=== PATIENT | male | born 1935 | race Hispanic/Latino ===

== ENCOUNTER 2018-07-05 05:22 | Day surgery (SDC) | payer OTHER ==
[2018-07-05] VITALS (8 sets, daily range): BP systolic 97–147; BP diastolic 42–76
[~2018-07-05] VITALS: Ht 175.3 cm; Wt 63.5 kg
[~2018-07-05 05:22] MED LIST: AEC81 PO; CARV25TA PO; ENAL2.5T PO; FURO20TA4 PO; POTASSIUM PO; SIMV10TA6 PO; SPIR25TA6 PO
[2018-07-05] MEDS ORDERED: PROPOFOL 1000 MG/100 ML 100 ML IV ONE (06:28)
[2018-07-05] MEDS ORDERED: LIDOCAINE HCL-MPF 2% 5ML VIAL ONE (06:28)
[2018-07-05] MEDS ORDERED: SODIUM CHLORIDE 0.9% 1000ML 1,000 ML IV ONE (06:28)
[2018-07-05] MEDS ORDERED: GLYCOPYRROLATE 0.2 MG/ML 5 ML VIAL ONE (06:29)
[2018-07-05] MEDS ORDERED: EPHEDRINE SULFATE 50 MG/ML AMPULE ONE (06:42)
== END 2018-07-05 07:45 | disposition home or self-care (01) ==
LOC: ENDO 05:22 → DAH 05:22 → ENDO 07:45
PROVIDERS: ATTEND Internal Medicine Gastroenterology
DX: K57.30 Diverticulosis of large intestine without perforation or abscess without bleeding (principal); K29.50 Unspecified chronic gastritis without bleeding; B96.81 Helicobacter pylori [H. pylori] as the cause of diseases classified elsewhere; K44.9 Diaphragmatic hernia without obstruction or gangrene; R19.7 Diarrhea, unspecified; R10.84 Generalized abdominal pain; E78.5 Hyperlipidemia, unspecified; I11.0 Hypertensive heart disease with heart failure; I50.9 Heart failure, unspecified; M19.90 Unspecified osteoarthritis, unspecified site; Z79.899 Other long term (current) drug therapy; Z98.890 Other specified postprocedural states; Z95.0 Presence of cardiac pacemaker; E78.2 Mixed hyperlipidemia; Z79.01 Long term (current) use of anticoagulants; Z79.84 Long term (current) use of oral hypoglycemic drugs
CPT/HCPCS: 43239; 45380; 88305; 93005; A4606; J2704; J3490 ×2; J7030

== ENCOUNTER 2020-04-12 13:52 | Observation (INO) | payer OTHER ==
[~2020-04-12] VITALS: Ht 175.3 cm; Wt 68.7 kg
[~2020-04-12 13:52] MED LIST changes: +DEXA6TAB7 PO; +DOXY100C2 PO; -ENAL2.5T PO; +ENAL2.5T16 PO; -SIMV10TA6 PO; +SIMV10TA97 PO
[2020-04-12] MEDS ORDERED: SODIUM CHLORIDE 0.9% 50 ML IV ONE (14:49)
[2020-04-12] MEDS ORDERED: CEFTRIAXONE SODIUM 1 GM ONE (14:49)
[2020-04-12] MEDS ORDERED: PANTOPRAZOLE 40 MG/VIAL ONE (15:02)
[2020-04-12 15:03] LABS: INR 1.4 (0.85-1.15); PROTHROMBIN TIME 14.9 SEC (9.6-11.6)
[2020-04-12 15:11] LABS: PARTIAL THROMBOPLASTIN TIME 96.5 SEC (26.3-35.5)
[2020-04-12 16:06] LABS: POTASSIUM 4.3 mmol/L (3.5-5.1)
[2020-04-12 16:15] LABS: ALBUMIN 2.1 g/dL (3.5-5.0); BILIRUBIN,TOTAL 1.1 mg/dL (0.2-1.0); TOTAL PROTEIN, SERUM 5.3 g/dL (6.0-8.3); TROPONIN I 0.05 ng/mL (0.00-0.06)
[2020-04-12 16:17] LABS: APPEARANCE,URINE Clear (CLEAR); BILIRUBIN,URINE Negative (NEGATIVE); COLOR,URINE Dark Yellow (YELLOW); GLUCOSE, URINE (UA) Negative (NEGATIVE); KETONES,URINE Trace mg/dL (NEGATIVE); LEUKOCYTE ESTERASE ,URINE Negative (NEGATIVE); NITRATE,URINE Negative (NEGATIVE); OCCULT BLOOD,URINE Negative (NEGATIVE); PH,URINE 6.5 (5.0-8.0); PROTEIN,URINE POS 1+ mg/dL (NEGATIVE)
[2020-04-12 16:30] LABS: BASOPHILS % (AUTO) 0.2 % (0.0-5.0); HEMATOCRIT 36.2 % (42-54); LYMPHOCYTES % (AUTO) 6.1 % (21.0-51.0); MEAN CORPUSCULAR HEMOGLOBIN 27.8 pg (27.0-33.0); MEAN CORPUSCULAR HGB CONC 32.3 g/dL (32.0-36.0); MONOCYTES % (AUTO) 4.8 % (3.0-13.0); PLATELET COUNT (AUTO) 161 K/uL (130-400); RED BLOOD CELL COUNT(AUTO) 4.21 MIL/uL (4.50-6.20); RED CELL DISTRIBUTION WIDTH 15.1 % (11.0-15.5); WHITE BLOOD COUNT (AUTO) 5.6 K/uL (4.8-10.8)
[2020-04-12 16:40] LABS: BACTERIA,URINE Few /HPF (None Seen); MUCUS,URINE Moderate LPF (None Seen); RBC,URINE 0-1 /HPF (0-1); SQUAMOUS EPITHELIAL CELL,UR 0-2 /HPF (0-2); WBC,URINE 0-1 /HPF (0-1)
[2020-04-12] MEDS ORDERED: NITROGLYCERIN 0.4 MG SL TAB SL PRN (17:45)
[2020-04-12] MEDS ORDERED: MORPHINE SULFATE 2 MG/ML 1ML SYG IV PRN (17:45)
[2020-04-12] MEDS ORDERED: ACETAMINOPHEN 325 MG TAB PO PRN (17:45)
[2020-04-12] MEDS ORDERED: MAG HYDROX/AL HYDROX/SIMETH ES 30 ML SUSP UDCUP PO PRN (17:45)
[2020-04-12] MEDS ORDERED: ONDANSETRON HCL 4 MG/2 ML VIAL IV PRN (17:45)
[2020-04-12] MEDS ORDERED: LACTULOSE 20 GM/30 ML UDCUP PO PRN (17:45)
[2020-04-12] MEDS ORDERED: SODIUM CHLORIDE 0.9% 1000ML 1,000 ML IV SCH (17:45)
[2020-04-12 18:16] LABS: RAPID GROUP A STREP NEGATIVE (NEGATIVE)
[2020-04-12] MEDS ORDERED: ACETAMINOPHEN 325 MG TAB ONE (22:52)
[2020-04-12] MEDS ORDERED: FAMOTIDINE 20MG TAB 20 MG TAB ONE (23:25)
[2020-04-13 05:35] LABS: BASOPHILS % (AUTO) 0.1 % (0.0-5.0); EOSINOPHILS % (AUTO) 0.5 % (0.0-8.0); MEAN CORPUSCULAR HEMOGLOBIN 28.3 pg (27.0-33.0); MEAN CORPUSCULAR HGB CONC 32.6 g/dL (32.0-36.0); MEAN CORPUSCULAR VOLUME 86.9 fL (79-99); MONOCYTES % (AUTO) 5.6 % (3.0-13.0); NEUTROPHILS % (AUTO) 87.1 % (40.0-77.0); PLATELET COUNT (AUTO) 162 K/uL (130-400); RED BLOOD CELL COUNT(AUTO) 4.49 MIL/uL (4.50-6.20); RED CELL DISTRIBUTION WIDTH 15.2 % (11.0-15.5); WHITE BLOOD COUNT (AUTO) 7.6 K/uL (4.8-10.8)
[2020-04-13 05:52] LABS: POTASSIUM 4.5 mmol/L (3.5-5.1)
[2020-04-13] MEDS ORDERED: SODIUM CHLORIDE 0.9% 100 ML IV ONE (09:22)
[2020-04-13] MEDS ORDERED: CEFTRIAXONE SODIUM 1 GM ONE (09:22)
[2020-04-13] MEDS ORDERED: FAMOTIDINE 20MG TAB 20 MG TAB ONE (09:22)
[2020-04-13 13:26] LABS: ABG BASE EXCESS -2.1 mmol/L (-2.0-3.0); ABG HCO3 19.7 mmol/L (21.0-28.0); ABG OXYGEN SATURATION 96.9 % (95.0-99.0); ABG PCO2 27 mmHg (35-48)
--- NOTE | 2020-04-13 13:58 | NUR ---
ARRIVAL TO FLOOR Report received from RICHAR Grimes at 1320 Pt arrival to floor at 1350. Pt aaox4, airway patent breathing even and unlabored on room air. Pt connected to tele box at this time. VS stable. Will begin admission process. Pt made aware of plan of care
[2020-04-13 14:00] VITALS: BP 110/70
[2020-04-13] MEDS: ENALAPRIL MALEATE 5 MG TAB PO SCH (14:00)
[2020-04-13] MEDS: FUROSEMIDE 20 MG TABLET PO SCH (14:00)
[2020-04-13] MEDS: POTASSIUM CHLORIDE 20 MEQ ERTAB PO SCH (14:00)
[2020-04-13] MEDS: ASPIRIN 81 MG EC TAB PO SCH (14:00)
[2020-04-13] MEDS: FAMOTIDINE 20MG TAB 20 MG TAB PO SCH ×2 (14:00→20:51)
[2020-04-13] MEDS: CARVEDILOL 25 MG TABLET PO SCH ×2 (14:00→20:51)
[2020-04-13] MEDS: CEFTRIAXONE SODIUM 1 GM IV SCH ×3 (14:00→18:19)
[2020-04-13 16:18] VITALS: BP 113/71
[2020-04-13 19:47] VITALS: BP 105/56
[2020-04-13 23:50] VITALS: BP 90/52
[2020-04-14 03:37] VITALS: BP 114/86
[2020-04-14 04:42] LABS: BASOPHILS % (AUTO) 0.3 % (0.0-5.0); EOSINOPHILS % (AUTO) 0.4 % (0.0-8.0); HEMATOCRIT 41.1 % (42-54); LYMPHOCYTES % (AUTO) 7.5 % (21.0-51.0); MEAN CORPUSCULAR HEMOGLOBIN 28.7 pg (27.0-33.0); MEAN CORPUSCULAR HGB CONC 33.1 g/dL (32.0-36.0); MEAN CORPUSCULAR VOLUME 86.7 fL (79-99); MONOCYTES % (AUTO) 8.1 % (3.0-13.0); NEUTROPHILS % (AUTO) 83.4 % (40.0-77.0); PLATELET COUNT (AUTO) 161 K/uL (130-400); RED BLOOD CELL COUNT(AUTO) 4.74 MIL/uL (4.50-6.20); RED CELL DISTRIBUTION WIDTH 15.2 % (11.0-15.5); WHITE BLOOD COUNT (AUTO) 6.9 K/uL (4.8-10.8)
[2020-04-14 04:58] LABS: ALBUMIN 2.4 g/dL (3.5-5.0); BILIRUBIN,DIRECT 0.4 mg/dL (0.0-0.3); BILIRUBIN,TOTAL 0.8 mg/dL (0.2-1.0); MAGNESIUM 2.7 mg/dL (1.80-2.40); PHOSPHORUS 2.6 mg/dL (2.5-4.9); POTASSIUM 4.4 mmol/L (3.5-5.1); TOTAL PROTEIN, SERUM 6.7 g/dL (6.0-8.3)
[2020-04-14 07:50] VITALS: BP 106/64
[2020-04-14] MEDS: ASPIRIN 81 MG EC TAB PO SCH (08:37)
[2020-04-14] MEDS: CARVEDILOL 25 MG TABLET PO SCH (08:38)
[2020-04-14] MEDS: POTASSIUM CHLORIDE 20 MEQ ERTAB PO SCH (08:39)
[2020-04-14] MEDS: FAMOTIDINE 20MG TAB 20 MG TAB PO SCH (08:39)
[2020-04-14] MEDS: FUROSEMIDE 20 MG TABLET PO SCH (08:40)
[2020-04-14] MEDS: ENALAPRIL MALEATE 5 MG TAB PO SCH (08:43)
[2020-04-14] MEDS ORDERED: SPIRONOLACTONE 25 MG TAB PO SCH (09:00)
[2020-04-14 12:00] VITALS: BP 113/69
[2020-04-14 16:00] VITALS: BP 106/68
--- NOTE | 2020-04-14 17:09 | NUR ---
DISCHARGED Pt discharged per provider order. Pt transported to private vehicle via wheelchair in NAD. Spoke with daughter (primary caregiver), all questions answered and concerns addressed.
== END 2020-04-14 17:12 | disposition home or self-care (01) ==
LOC: EDH 13:52 → UNDOADMOB 17:34 → EDHIP 17:34 → 2AH 04-13 14:00 → EDHIP 04-13 14:00
PROVIDERS: ADMIT Internal Medicine Critical Care Medicine; ATTEND Internal Medicine Critical Care Medicine
DX: U07.1 COVID-19 (principal); J12.89 Other viral pneumonia; I11.0 Hypertensive heart disease with heart failure; I50.42 Chronic combined systolic (congestive) and diastolic (congestive) heart failure; R74.01 Elevation of levels of liver transaminase levels; I25.10 Atherosclerotic heart disease of native coronary artery without angina pectoris; I25.5 Ischemic cardiomyopathy; I48.91 Unspecified atrial fibrillation; E87.1 Hypo-osmolality and hyponatremia; H66.92 Otitis media, unspecified, left ear; E78.00 Pure hypercholesterolemia, unspecified; Z95.810 Presence of automatic (implantable) cardiac defibrillator; Z90.49 Acquired absence of other specified parts of digestive tract; Z79.82 Long term (current) use of aspirin; Z79.899 Other long term (current) drug therapy
CPT/HCPCS: 36415 ×3; 36600; 71045; 80048; 80053 ×2; 81001; 82150; 82270; 82550; 82803; 82948; 83605; 83690; 83735 ×2; 83874; 84100; 84145; 84484; 85025 ×3; 85610; 85730; 86850; 86900; 86901; 86922; 87040; 87088; 87426; 87804 ×2; 87880; 93005; 96374; 99285; C9113; G0378 ×8; J0696 ×3; U0003; 80076

== ENCOUNTER → 2022-01-19 | Outpatient (CLI) | payer OTHER ==
[~2022-01-19] MED LIST changes: -DEXA6TAB7 PO; -DOXY100C2 PO; -POTASSIUM PO; -SIMV10TA97 PO
[2022-01-19 12:31] LABS: MAGNESIUM 2.1 mg/dL (1.80-2.40); POTASSIUM 4.6 mmol/L (3.5-5.1)
== END | disposition home or self-care (01) ==
LOC: LAB 08:30
PROVIDERS: ATTEND Internal Medicine Cardiovascular Disease
DX: I50.22 Chronic systolic (congestive) heart failure (principal); I10 Essential (primary) hypertension
CPT/HCPCS: 36415; 80048; 83735

== ENCOUNTER → 2023-11-14 | Outpatient (CLI) | payer OTHER ==
[~2023-11-14] MED LIST changes: -ENAL2.5T16 PO; +ENAL2.5T71 PO
[2023-11-14 16:43] LABS: POTASSIUM 4.6 mmol/L (3.5-5.1)
== END | disposition home or self-care (01) ==
LOC: LAB 14:41
PROVIDERS: ATTEND Internal Medicine Cardiovascular Disease
DX: I42.0 Dilated cardiomyopathy (principal)
CPT/HCPCS: 36415; 80048; 83880

== ENCOUNTER → 2023-12-06 | Outpatient (CLI) | payer OTHER ==
[2023-12-06 12:35] LABS: POTASSIUM 4.9 mmol/L (3.5-5.1)
== END | disposition home or self-care (01) ==
LOC: LAB 11:15
PROVIDERS: ATTEND Internal Medicine Cardiovascular Disease
DX: I50.22 Chronic systolic (congestive) heart failure (principal)
CPT/HCPCS: 36415; 80048; 83880

== ENCOUNTER → 2024-03-12 | Outpatient (CLI) | payer OTHER ==
[2024-03-12 16:25] LABS: CREATININE 1.2 mg/dL (0.5-1.3); POTASSIUM 4.3 mmol/L (3.5-5.1)
== END | disposition home or self-care (01) ==
LOC: LAB 13:24
PROVIDERS: ATTEND Internal Medicine Cardiovascular Disease
DX: I50.22 Chronic systolic (congestive) heart failure (principal)
CPT/HCPCS: 36415; 80048

== ENCOUNTER → 2024-03-21 | Outpatient (CLI) | payer OTHER ==
[2024-03-21 12:21] LABS: CREATININE 1.1 mg/dL (0.5-1.3); POTASSIUM 4.9 mmol/L (3.5-5.1)
== END | disposition home or self-care (01) ==
LOC: LAB 11:04
PROVIDERS: ATTEND Internal Medicine Cardiovascular Disease
DX: I10 Essential (primary) hypertension (principal)
CPT/HCPCS: 36415; 80048

== ENCOUNTER → 2024-07-12 | Outpatient (CLI) | payer OTHER ==
[2024-07-12 12:30] LABS: BASOPHILS # (AUTO) 0.03 K/uL (0.00-0.20); BASOPHILS % (AUTO) 0.3 % (0.0-5.0); EOSINOPHILS # (AUTO) 0.15 K/uL (0.00-0.70); EOSINOPHILS % (AUTO) 1.7 % (0.0-8.0); HEMATOCRIT 38.5 % (42-54); IMMATURE GRANULOCYTE ABSOLUTE 0.03 K/uL (0-1); LYMPHOCYTES # (AUTO) 1.6 K/uL (1.0-4.8); LYMPHOCYTES % (AUTO) 17.9 % (21.0-51.0); MEAN CORPUSCULAR HEMOGLOBIN 28.5 pg (27.0-33.0); MEAN CORPUSCULAR HGB CONC 31.9 g/dL (32.0-36.0); MEAN CORPUSCULAR VOLUME 89.3 fL (79-99); MONOCYTES # (AUTO) 0.6 K/uL (0.1-1.0); MONOCYTES % (AUTO) 6.4 % (3.0-13.0); NEUTROPHILS # (AUTO) 6.3 K/uL (1.8-7.7); NEUTROPHILS % (AUTO) 73.4 % (40.0-77.0); PLATELET COUNT (AUTO) 183 K/uL (130-400); RED BLOOD CELL COUNT(AUTO) 4.31 MIL/uL (4.50-6.20); WHITE BLOOD COUNT (AUTO) 8.7 K/uL (4.8-10.8)
[2024-07-12 12:43] LABS: % IRON SATURATION 15.6 % (30-44)
== END | disposition home or self-care (01) ==
LOC: LAB 11:17
PROVIDERS: ATTEND Internal Medicine Cardiovascular Disease
DX: E61.1 Iron deficiency (principal); D64.9 Anemia, unspecified
CPT/HCPCS: 36415; 82728; 83540; 83550; 85025

== ENCOUNTER → 2024-10-08 | Outpatient (CLI) | payer OTHER ==
[2024-10-08 16:16] LABS: BASOPHILS # (AUTO) 0.03 K/uL (0.00-0.20); BASOPHILS % (AUTO) 0.4 % (0.0-5.0); EOSINOPHILS # (AUTO) 0.24 K/uL (0.00-0.70); EOSINOPHILS % (AUTO) 3.4 % (0.0-8.0); IMMATURE GRANULOCYTE ABSOLUTE 0.03 K/uL (0-1); LYMPHOCYTES # (AUTO) 1.2 K/uL (1.0-4.8); LYMPHOCYTES % (AUTO) 17.3 % (21.0-51.0); MEAN CORPUSCULAR HEMOGLOBIN 28.2 pg (27.0-33.0); MEAN CORPUSCULAR HGB CONC 31.1 g/dL (32.0-36.0); MEAN CORPUSCULAR VOLUME 90.7 fL (79-99); MONOCYTES # (AUTO) 0.5 K/uL (0.1-1.0); MONOCYTES % (AUTO) 6.9 % (3.0-13.0); NEUTROPHILS # (AUTO) 5.1 K/uL (1.8-7.7); NEUTROPHILS % (AUTO) 71.6 % (40.0-77.0); PLATELET COUNT (AUTO) 168 K/uL (130-400); RED BLOOD CELL COUNT(AUTO) 4.08 MIL/uL (4.50-6.20); RED CELL DISTRIBUTION WIDTH 15.2 % (11.0-15.5); WHITE BLOOD COUNT (AUTO) 7.1 K/uL (4.8-10.8)
[2024-10-08 16:31] LABS: % IRON SATURATION 14.1 % (30-44)
== END | disposition home or self-care (01) ==
LOC: LAB 11:40
PROVIDERS: ATTEND Internal Medicine Cardiovascular Disease
DX: E61.1 Iron deficiency (principal); D64.9 Anemia, unspecified
CPT/HCPCS: 36415; 82728; 83540; 83550; 85025

== ENCOUNTER 2025-01-25 11:05 | Observation (INO) | payer OTHER ==
[~2025-01-25] VITALS: Ht 177.8 cm; Wt 64.4 kg
[~2025-01-25 11:05] MED LIST changes: +CARB1DRO36 OP; +CYCL5TAB3 PO; +DOXA8TAB81 PO; +KETO-108 OP; +PROP10DR4 OP; +SIMV10TA97 PO
--- NOTE | 2025-01-25 11:18 | ERN ---
ED Note History of Present Illness Stated Complaint: WEAKNESS Chief Complaint: Weakness Time Seen by MD: 11:06 Dictation: PATIENT IS AN 89-YEAR-OLD MALE COMING IN VIA EMS WITH COMPLAINTS OF AN ONSET OF LIGHTHEADEDNESS WHEN HE FELT LIKE HIS FACE WAS GOING TO BUST 1 HOUR PRIOR TO ARRIVAL. STATES HE WAS JUST SITTING AND WHEN HE FELT THE SENSATION. STATES IT ONLY LASTED VERY BRIEFLY, DID NOT LOSE HIS SPEECH OR MOVEMENT OF ALL EXTREMITIES. STATES CURRENTLY HE DOES NOT HAVE A HEADACHE NO CHEST PAIN NO BACK PAIN NO VERTIGO. HE DOES HAVE A HISTORY OF CAD HYPERTENSION PACEMAKER AND CONGESTIVE HEART FAILURE. NIH IS 0 ON APPROACH Allergies: Coded Allergies: No Known Drug Allergies (Unverified Allergy, Unknown, 01/17/15) Home Meds Reported Medications Propylene Glycol (Systane Balance) 0.6 % Drops, 1 DROP OP QID, #10 ML 0 Refills 11/07/24 Carboxymethylcell/Glycerin/Pf (Refresh Relieva Pf 0.5-1% Drop) 0.5 %-1 % Droperette, 1 EACH OP TID, DROP 11/07/24 Ketorolac Tromethamine (Ketorolac Tromethamine) 0.5 % Drops, 1 DROP OP QID for itching, #5 ML 0 Refills 11/07/24 Cyclobenzaprine HCl (Cyclobenzaprine HCl) 5 Mg Tablet, 1 TAB PO TIDP PRN for muscle spasms for 10 Days, #30 TAB 0 Refills 11/07/24 Simvastatin (Simvastatin) 10 Mg Tablet, 1 TAB PO DAILY 11/07/24 Doxazosin Mesylate (Doxazosin Mesylate) 8 Mg Tablet, 1 TAB PO DAILY for 30 Days, #30 TAB 0 Refills 11/07/24 Enalapril Maleate (Enalapril Maleate) 2.5 Mg Tablet, 2.5 MG PO DAILY, TAB 09/20/16 Furosemide (Furosemide) 20 Mg Tablet, 20 MG PO DAILY, TAB 09/20/16 Aspirin (ASPIRIN 81 MG ECTAB) 81 Mg Ectab, 81 MG PO DAILY, TAB.EC 01/17/15 Spironolactone (Spironolactone) 25 Mg Tablet, 25 MG PO MON,WED,FRI, TAB 01/17/15 Carvedilol (Carvedilol) 25 Mg Tablet, 25 MG PO BID, TAB 01/17/15 Past Medical History Past Medical History: High Cholesterol, Hypertension Surgical History: Cholecystectomy, Pacer/AICD RN Note Reviewed/Agreed w/PFSH: Yes Review of System Dictation CONSTITUTIONAL: NEGATIVE EXCEPT FOR HPI LIGHTHEADEDNESS/NEAR-SYNCOPE HEAD/FACE: NEGATIVE EXCEPT FOR HPI EENT: NEGATIVE EXCEPT FOR HPI RESPIRATORY: NEGATIVE EXCEPT FOR HPI GASTROINTESTINAL/ABDOMINAL: NEGATIVE EXCEPT FOR HPI GENITOURINARY: NEGATIVE EXCEPT FOR HPI MUSCULOSKELETAL: NEGATIVE EXCEPT FOR HPI INTEGUMENTARY: NEGATIVE EXCEPT FOR HPI NEUROLOGICAL/PSYCH: NEGATIVE EXCEPT FOR HPI HEMATOLOGIC/LYMPHATIC: NEGATIVE EXCEPT FOR HPI ALL SYSTEMS NEGATIVE, EXCEPT NOTED ABOVE. 13 POINT REVIEW OF SYSTEMS ASSESSED AND ALL NEGATIVE EXCEPT FOR ABOVE. Initial Vital Sign VS Vital Signs Date Time Temp Pulse Resp B/P (MAP) Pulse Ox O2 Delivery O2 Flow Rate FiO2 01/25/25 11:10 72 16 108/80 97 Room Air 0 01/25/25 11:33 97.9 21 Physical Exam Dictation VITAL SIGNS REVIEWED GENERAL APPEARANCE: ALERT, ORIENTED X 3, NO ACUTE DISTRESS, WELL DEVELOPED, NOURISHED. 0/10 HEAD AND FACE: NON-TRAUMATIC. EYES: PERRL, PINK CONJUNCTIVAS, EYELID NO TRAUMA, ANTERIOR CHAMBER WITH ARCUS SENILIS. EARS: PINNAS INTACT AND NO SIGNS OF TRAUMA OR ERYTHEMA EAR CANALS CLEAR AND NO DISCHARGE TM NO ERYTHEMA NOSE: NO DISCHARGE, NO BLEEDING. OROPHARYNX: MOUTH NORMAL, TONGUE PINK, PHARYNX CLEAR,NO ERYTHEMA, TONSILS NO EXUDATES, NO ABSCESSES NOTED, MUCOUS MEMBRANE MOIST NECK: SUPPLE, NON-TENDER, NO THYROMEGALY, NO MASSES, NO JVD, NO BRUITS BREAST:DEFERRED CHEST:NO TENDERNESS, NO CREPITUS, NO PARADOXICAL MOVEMENT, NO RETRACTIONS LUNGS:CLEAR, WELL-VENTILATED, SYMMETRIC, NO RALES, NO WHEEZING, NO RHONCHI, NO STRIDOR, GOOD BREATH SOUNDS BILATERALLY HEART: REGULAR RATE, REGULAR RHYTHM, NO MURMUR, NO GALLOPS VASCULAR: TRACE PERIPHERAL EDEMA, ABDOMEN: SOFT, POSITIVE BOWEL SOUNDS, NONDISTENDED, NO GUARDING, NONTENDER, NO REBOUND, NO MASSES NO HEPATOMEGALY, NO SPLENOMEGALY, NO WAGNER'S SIGN, NO HERNIAS. RECTAL: DEFERRED GENITAL: DEFERRED NEUROLOGICAL: NORMAL SPEECH, MOTOR FUNCTION INTACT, SENSORY FUNCTION INTACT NIH IS 0 MUSCULOSKELETAL: NECK NONTENDER, FULL RANGE OF MOTION, BACK NONTENDER, FULL RANGE OF MOTION, EXTREMITIES: NONTENDER, FULL RANGE OF MOTION SKIN: COLOR PINK, DRY, NO TURGOR, NO RASH, NO LACERATIONS, NO ABRASIONS, NO CONTUSIONS. LYMPHATIC: DEFERRED Results (Laboratory/Radiology) Laboratory/Radiology Laboratory Tests Test 01/25/25 11:27 01/25/25 12:03 White Blood Count 7.1 K/uL (4.8-10.8) Red Blood Count 4.36 MIL/uL (4.50-6.20) L Hemoglobin 12.3 g/dL (14.0-18.0) L Hematocrit 37.2 % (42-54) L Mean Corpuscular Volume 85.3 fL (79-99) Mean Corpuscular Hemoglobin 28.2 pg (27.0-33.0) Mean Corpuscular Hemoglobin Concent 33.1 g/dL (32.0-36.0) Red Cell Distribution Width 14.7 % (11.0-15.5) Platelet Count 191 K/uL (130-400) Mean Platelet Volume 9.0 fL (7.5-10.5) Immature Granulocyte % (Auto) 0.3 % (0-1) Neutrophils (%) (Auto) 79.6 % (40.0-77.0) H Lymphocytes (%) (Auto) 13.0 % (21.0-51.0) L Monocytes (%) (Auto) 4.1 % (3.0-13.0) Eosinophils (%) (Auto) 2.4 % (0.0-8.0) Basophils (%) (Auto) 0.6 % (0.0-5.0) Neutrophils # (Auto) 5.7 K/uL (1.8-7.7) Lymphocytes # (Auto) 0.9 K/uL (1.0-4.8) L Monocytes # (Auto) 0.3 K/uL (0.1-1.0) Eosinophils # (Auto) 0.17 K/uL (0.00-0.70) Basophils # (Auto) 0.04 K/uL (0.00-0.20) Absolute Immature Granulocyte (auto 0.02 K/uL (0-1) Nucleated Red Blood Cells 0.0 % (0.0-0.19) Sodium Level 136 mmol/L (136-145) Potassium Level 4.0 mmol/L (3.5-5.1) Chloride Level 99 mmol/L (101-111) L Carbon Dioxide Level 31 mmol/L (21-32) Blood Urea Nitrogen 17 mg/dL (7-18) Creatinine 0.9 mg/dL (0.5-1.3) Glomerular Filtration Rate Calc 82 mL/min (>90) Random Glucose 122 mg/dL (70-105) H Total Calcium 8.7 mg/dL (8.5-10.1) Magnesium Level 2.10 mg/dL (1.80-2.40) Troponin I High Sensitivity 35 ng/L (4-75) B-Type Natriuretic Peptide 1940 pg/mL (0-100) H Urine Color YELLOW (YELLOW) Urine Appearance CLEAR (CLEAR) Urine pH 6.5 (5.0-8.0) Urine Specific Western 1.010 (1.001-1.031) Urine Protein NEGATIVE mg/dL (NEGATIVE) Urine Glucose (UA) NEGATIVE mg/dL (NEGATIVE) Urine Ketones NEGATIVE mg/dL (NEGATIVE) Urine Occult Blood NEGATIVE (NEGATIVE) Urine Nitrate NEGATIVE (NEGATIVE) Urine Bilirubin NEGATIVE mg/dL (NEGATIVE) Urine Urobilinogen 0.2 mg/dL (0.2-1.0) Urine Leukocyte Esterase NEGATIVE Jose Armando/uL Exam: NONCONTRAST CT BRAIN REASON: TRANSIENT LIGHTHEADEDNESS THIS MORNING NEUROLOGICALLY INTACT. COMPARISON: None. TECHNIQUE: Images are obtained from vertex to the skull base. The exam was performed without IV contrast. FINDINGS: There is normal appearing brain parenchyma. There are no focal mass lesions. There is is no evidence of intracranial hemorrhage or acute stroke. Ventricles and sulci appear normal. Posterior fossa and brainstem structures are unremarkable. Paranasal sinuses and remaining extracranial soft tissues appear normal as well.There is global atrophy consistent with patient's chronological age. There is atherosclerotic changes with calcified plaque of the vertebral basilar circulation IMPRESSION: 1. No acute intracranial process 2. Global atrophy with periventricular ischemic white matter changes. CT was performed with one or more following dose reduction techniques: automated exposure control, adjustment of the mA and kv according to patient's size, or use of a iterative reconstruction technique. CHEST 1VW REASON: CHEST PAIN/SOB COMPARISON: None. FINDINGS: Single view of the chest was obtained. Lungs are clear. Heart size is normal. There is a left-sided AICD with lead in right atrium and right ventricle. Prior study from 11/09/2024 is available. There is no pulmonary vascular congestion. Mediastinum and bony thorax appear unremarkable. IMPRESSION: No acute cardiopulmonary process and unchanged from prior study. Labs Reviewed?: Yes EKG Comment: EKG AV PACED RHYTHM/VENTRICULAR RATE 76/NO ECTOPY ED Course ED Course Orders Procedure Category Date Status Time B-Type Natriuretic LAB 01/25/25 Complete Peptide 11:14 Ct Head/Brain W/O CT 01/25/25 Resulted Contrast 11:14 Cbc With Differential LAB 01/25/25 Complete 11:14 Chest 1vw RAD 01/25/25 Resulted 11:14 12 Lead Ekg Tracing- EKG 01/25/25 Logged Technical 11:14 Magnesium LAB 01/25/25 Complete 11:14 Troponin I High LAB 01/25/25 Complete Sensitivity 11:14 Urinalysis Profile LAB 01/25/25 Complete 11:14 Basic Metabolic Panel LAB 01/25/25 Complete 11:14 Furosemide 40mg Vial PHA 01/25/25 Complete (Lasix 40mg Vial) 13:00 Edm Admit Bridge Order ADM 01/25/25 Verified 13:48 Current Medications Medications (Trade) Dose Ordered Sig/Elli Route PRN Reason Start Time Stop Time Status Last Admin Dose Admin Furosemide (LASix 40MG VIAL) 40 mg ONCE ONCE IV 01/25/25 13:00 01/25/25 13:01 DC Vital Signs Date Time Temp Pulse Resp B/P (MAP) Pulse Ox O2 Delivery O2 Flow Rate FiO2 01/25/25 11:33 97.9 80 17 107/59 96 Room Air* 0 21 01/25/25 11:10 72 16 108/80 97 Room Air 0 1340/SPOKE WITH PATIENT AT LENGTH REGARDING CLINICAL FINDINGS. HE STATES HE HAS BEEN FEELING VERY WEAK DOES NOT FEEL SAFE GOING HOME WOULD LIKE TO STAY IN THE HOSPITAL FOR CARDIAC CONSULTATION MANAGEMENT OF HIS CHF IN HIS WEAKNESS. 1350/SPOKE WITH MARILY FROM [facility] REVIEWED EKG LABS CHEST X-RAY AND INTERVENTIONS FOR CHF EXACERBATION HE AGREED TO HEART Score Response (Comments) Value EKG: Repolarization changes 1 Age: > 65yrs (+2) 2 Risk Factors: 3+ risk factors (+2) 2 Initial Troponin: Normal limit (0) 0 Total 5 Medical Decision Making MDM MDM: DIFFERENTIAL DIAGNOSIS: ACS/AMI/CONGESTIVE HEART FAILURE/FLUID OVERLOAD/ANEMIA/ELECTROLYTE IMBALANCE/PNEUMONIA/BRONCHITIS/WEAKNESS RATIONALE: TESTS CONSIDERED AND ORDERED SECONDARY TO SHARED DECISION MAKING INCLUDE: LABS, ECG AND RADIOLOGY PREVIOUS OUTSIDE RECORDS REVIEWED: OLD ER VISITS. RISK OF COMPLICATION AND/OR MORBIDITY OR MORTALITY OF PATIENT MANAGEMENT: NONE MEDICATIONS-PER MEDICATION RECONCILIATION NEED FOR HOSPITALIZATION: PATIENT DOES MEET CRITERIA FOR HOSPITALIZATION. PATIENT WILL NEED MILD DIURESIS CONTINUED IV FLUIDS CARDIOLOGY CONSULTATION NEED FOR EMERGENCY MAJOR/MINOR SURGERY: NO THERE ARE NO SOCIAL CONCERNS WITH THIS PATIENT. PRESCRIPTION DRUG MANAGEMENT PRESCRIPTIONS WILL INCLUDE SYMPTOMATIC CARE PATIENT'S PRIOR EXTERNAL MEDICAL RECORDS FROM OTHER ER VISITS WERE REVIEWED BY ME INDICATED. PRIOR TESTING AND RESULTS FROM PREVIOUS VISITS WERE REVIEWED. PRIOR TESTS WERE TAKEN INTO ACCOUNT WITH MEDICAL DECISION MAKING AND RESOURCE UTILIZATION, INDEPENDENT HISTORIAN/HISTORIANS WERE USED TO OBTAIN COMPLETE MED [facility]. I INDEPENDENTLY INTERPRETED THE TEST THAT WERE PERFORMED, RESULTS WERE REVIEWED BY ME AND CONSIDERED FINDINGS ON RADIOLOGY IF ORDERED. MEDICAL MANAGEMENT AND EXAMINATION INTERPRETATION DISCUSSIONS WERE HAD BY ME WITH OTHER QUALIFIED HEALTHCARE PROFESSIONALS INDICATED FOR THE PATIENT'S CARE. DX & DISP Disposition: Inpatient Decision to Admit Time: 13:38 Departure Impression: Primary Impression: Acute CHF (congestive heart failure) Additional Impressions: Hypochloremia, Hyperglycemia, Dyspnea on minimal exertion, Pacemaker, Chronic anemia Condition: Stable Referrals: BLAS RUTHERFORD MD (PCP) Time of Disposition: 13:38 I have reviewed the case, and I agree with, Diagnosis and Plan BRUNO CLEMENTS NP Jan 25, 2025 11:18
[2025-01-25 11:38] LABS: IMMATURE GRANULOCYTE ABSOLUTE 0.02 K/uL (0-1); NUCLEATED RED BLOOD CELLS 0.0 % (0.0-0.19); PLATELET COUNT (AUTO) 191 K/uL (130-400); RED BLOOD CELL COUNT(AUTO) 4.36 MIL/uL (4.50-6.20); RED CELL DISTRIBUTION WIDTH 14.7 % (11.0-15.5); WHITE BLOOD COUNT (AUTO) 7.1 K/uL (4.8-10.8)
[2025-01-25 11:50] LABS: CREATININE 0.9 mg/dL (0.5-1.3); GLOMERULAR FILTR. RATE CALC 82.0 mL/min (>90); GLUCOSE,RANDOM 122.0 mg/dL (70-105); SODIUM SERUM 136.0 mmol/L (136-145); UREA NITROGEN, BLOOD 17.0 mg/dL (7-18)
--- NOTE | 2025-01-25 12:10 | HMCIMG ---
Exam: NONCONTRAST CT BRAIN REASON: TRANSIENT LIGHTHEADEDNESS THIS MORNING NEUROLOGICALLY INTACT. COMPARISON: None. TECHNIQUE: Images are obtained from vertex to the skull base. The exam was performed without IV contrast. FINDINGS: There is normal appearing brain parenchyma. There are no focal mass lesions. There is is no evidence of intracranial hemorrhage or acute stroke. Ventricles and sulci appear normal. Posterior fossa and brainstem structures are unremarkable. Paranasal sinuses and remaining extracranial soft tissues appear normal as well.There is global atrophy consistent with patient's chronological age. There is atherosclerotic changes with calcified plaque of the vertebral basilar circulation IMPRESSION: 1. No acute intracranial process 2. Global atrophy with periventricular ischemic white matter changes. CT was performed with one or more following dose reduction techniques: automated exposure control, adjustment of the mA and kv according to patient's size, or use of a iterative reconstruction technique.
--- NOTE | 2025-01-25 12:11 | HMCIMG ---
CHEST 1VW REASON: CHEST PAIN/SOB COMPARISON: None. FINDINGS: Single view of the chest was obtained. Lungs are clear. Heart size is normal. There is a left-sided AICD with lead in right atrium and right ventricle. Prior study from 11/09/2024 is available. There is no pulmonary vascular congestion. Mediastinum and bony thorax appear unremarkable. IMPRESSION: No acute cardiopulmonary process and unchanged from prior study.
[2025-01-25 12:24] LABS: APPEARANCE,URINE CLEAR (CLEAR); GLUCOSE, URINE (UA) NEGATIVE (NEGATIVE); LEUKOCYTE ESTERASE ,URINE NEGATIVE Leu/uL (NEGATIVE); NITRATE,URINE NEGATIVE (NEGATIVE); OCCULT BLOOD,URINE NEGATIVE (NEGATIVE)
[2025-01-25 12:29] LABS: ADD UA MICROSCOPIC NO
--- NOTE | 2025-01-25 13:56 | HP ---
[facility] HISTORY & PHYSICAL Date Patient Seen: Jan 25, 2025 Time of Visit: 13:56 Supervising Physician: Dr. Duane West Primary Care Physician: Dr. Sewell Outpatient Specialists: [ ] Inpatient Consults: [ ] PROBLEM LIST: Presyncope CHF exacerbation pending echocardiogram Pacemaker Hypertension Hypercholesteremia HPI: Patient is an 89-year-old male who was admitted for an episode of lightheadedness associated with facial pressure, patient denies any facial drooping, no slurred speech. There was no loss of vision. Patient denies mechanical fall. In the emergency room patient's lab work is unremarkable, CT head was negative for acute findings. Tele neuro was consulted in the emergency department and requested a CTA of the head and neck, echocardiogram. Patient has pending these studies at this time. Patient is currently being diuresed from Lasix 40 mg q.8 hours at this time, we will decrease this dose tomorrow and re-evaluate BNP. Patient advised with the current treatment plan, he remains on room air, expressed understanding, no further complaints at this time. Plan Pending CTA of head and neck Pending echocardiogram Lasix 40 mg q.8 hours for 24 hours, then decreased to Lasix 40 mg b.i.d. IV push Supplemental O2 if required Follow morning labs and BNP PAST MEDICAL HX: see above PAST SURGICAL HX: noncontributory SOCIAL HISTORY: No tobacco, ETOH, or illicit drug use Coded Allergies: No Known Drug Allergies (Unverified Allergy, Unknown, 01/17/15) REVIEW OF SYSTEMS: 12 point ROS reviewed with patient. Pertinent positives mentioned above. Otherwise negative. PHYSICAL EXAM: GENERAL: alert, weak, awake oriented x 3 HEENT: EOMI, Sclera non icteric, moist mucosa NECK: Supple, no JVD, trachea midline LUNGS: Clear breath sounds bilaterally. No wheezes HEART: Regular rate and rhythm. Normal S1 and S2, without murmurs ABD: Abdomen soft, nontender. Bowel sounds present EXT: No clubbing cyanosis or edema NEURO: Alert and oriented to person, follows commands Vital Signs (last 8hr) Date Time Temp Pulse Resp B/P (MAP) Pulse Ox O2 Delivery O2 Flow Rate FiO2 01/25/25 11:33 97.9 80 17 107/59 96 Room Air* 0 21 01/25/25 11:10 72 16 108/80 97 Room Air 0 LABS: Hematology Labs: Test 01/25/25 11:27 Range/Units White Blood Count 7.1 4.8-10.8 K/uL Red Blood Count 4.36 L 4.50-6.20 MIL/uL Hemoglobin 12.3 L 14.0-18.0 g/dL Hematocrit 37.2 L 42-54 % Mean Corpuscular Volume 85.3 79-99 fL Mean Corpuscular Hemoglobin 28.2 27.0-33.0 pg Mean Corpuscular Hemoglobin Concent 33.1 32.0-36.0 g/dL Red Cell Distribution Width 14.7 11.0-15.5 % Platelet Count 191 130-400 K/uL Mean Platelet Volume 9.0 7.5-10.5 fL Immature Granulocyte % (Auto) 0.3 0-1 % Neutrophils (%) (Auto) 79.6 H 40.0-77.0 % Lymphocytes (%) (Auto) 13.0 L 21.0-51.0 % Monocytes (%) (Auto) 4.1 3.0-13.0 % Eosinophils (%) (Auto) 2.4 0.0-8.0 % Basophils (%) (Auto) 0.6 0.0-5.0 % Neutrophils # (Auto) 5.7 1.8-7.7 K/uL Lymphocytes # (Auto) 0.9 L 1.0-4.8 K/uL Monocytes # (Auto) 0.3 0.1-1.0 K/uL Eosinophils # (Auto) 0.17 0.00-0.70 K/uL Basophils # (Auto) 0.04 0.00-0.20 K/uL Absolute Immature Granulocyte (auto 0.02 0-1 K/uL Nucleated Red Blood Cells 0.0 0.0-0.19 % Chemistry Labs: Test 01/25/25 11:27 Range/Units Sodium Level 136 136-145 mmol/L Potassium Level 4.0 3.5-5.1 mmol/L Chloride Level 99 L 101-111 mmol/L Carbon Dioxide Level 31 21-32 mmol/L Blood Urea Nitrogen 17 7-18 mg/dL Creatinine 0.9 0.5-1.3 mg/dL Glomerular Filtration Rate Calc 82 >90 mL/min Random Glucose 122 H 70-105 mg/dL Total Calcium 8.7 8.5-10.1 mg/dL Magnesium Level 2.10 1.80-2.40 mg/dL Troponin I High Sensitivity 35 4-75 ng/L B-Type Natriuretic Peptide 1940 H 0-100 pg/mL DIAGNOSTICS / RADIOLOGY RESULTS: [ ] PLAN NEURO: Minimize central acting medications as possible. Maintain fall precautions, adequate lighting during the day PULMONARY: Supplemental 02 as needed. Maintain aspiration precautions at all times CARDIOVASCULAR: Follow hemodynamics. Vital signs per facility protocol GI & NUTRITION: Continue with nutritional support. Continue stool softeners and laxatives as needed. KIDNEYS & ELECTROLYTES: Strict monitoring of intake, output and overall fluid balance. Avoid nephrotoxic medications to the extent possible. Medications to be dosed according to renal function. Monitor electrolytes and replace as needed ENDOCRINE: Maintain blood glucose between 100-180 at all times. Hypoglycemia protocol in place INFECTIOUS DISEASE: Trend temperature, WBC and procalcitonin level Follow cultures, deescalate antibiotics as soon as possible. Panculture if new onset fever ONCOLOGY/HEMATOLOGY/COAGULATION: Monitor for s/s of bleeding Monitor hemoglobin, coagulation studies as needed SKIN: Pressure ulcer prevention per facility protocol Specialty mattress ORTHO/REHAB: Continue PT/OT Prophylaxis: Continue GI and DVT prophylaxis Code Status: Full Resuscitation Disposition: TBD Other: Total patient care time exceeds 35 minutes excluding all procedures. MARILY APPLE Jan 25, 2025 13:56
--- NOTE | 2025-01-25 14:03 | EKG ---
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
--- NOTE | 2025-01-25 15:20 | CONS ---
CONSULT NOTE: [facility] Note # Demographics Consult Type: General Neurology Patient Location: Emergency Room First Name: ADENIKE Last Name: JEFFREY Date of : 1935 Age: 89 Gender: Male Facility: [facility] Time of Initial Page (Central Time): 01/25/2025 15:05 First Contact with Site (Central Time): 01/25/2025 15:06 # HPI History: 89yo male presents with lightheadedness. He has had this in the past and evaluated as outpatient. He is having CHF exacerbation. # Exam Time of Exam (Central Time): 01/25/2025 15:15 Vitals: vital signs reviewed Mental Status: - awake - alert and oriented x 3 Motor: - no drift # Data Head CT: - no bleed - per radiologist read # Assessment Impression: - Vertigo # Plan Target Blood Pressure: - SBP < 220 - SBP > 110 Imaging: (urgency: STAT): - CT Angiogram Head and CT Angiogram Neck AND call back with results if abnormal Imaging: (urgency: routine): - MRI Brain without contrast only if no other cause found Diagnostic Test: - echo without bubble study Other: - If patient has any neurological deterioration please call me back immediately - telemetry monitoring # Demographics First Name: ADENIKE Last Name: JEFFREY Facility: [facility] BRIAN MAGALLANES MD Jan 25, 2025 15:20
--- NOTE | 2025-01-25 15:21 | NUR ---
RECIEVED HANDOFF REPORT FROM PRASHANTH RN
[2025-01-25] MEDS ORDERED: FE F1CAP8 PO (15:43)
[2025-01-25] MEDS ORDERED: FURO40TA5 PO (15:43)
[2025-01-25] MEDS ORDERED: CARV6.25 PO (15:43)
[2025-01-25] MEDS ORDERED: ENAL2.5T71 PO (15:43)
[2025-01-25 16:00] VITALS: BP 108/61; PULSE 85; RESP 15; TEMP 98.2
[2025-01-25] MEDS ORDERED: guaiFENesin-DM 200/20MG 10ML PO PRN (16:00)
[2025-01-25] MEDS ORDERED: LIDOCAINE HCL 2% VISCOUS 30 ML, MAG/ALUM/SIMETH 30ML 30 ML, DICYCLOMINE HCL 20 MG PO PRN (16:00)
[2025-01-25] MEDS ORDERED: NITROGLYCERIN 0.4 MG SL TAB SL PRN (16:00)
[2025-01-25] MEDS ORDERED: ARTIFICAL TEARS SOL 15 ML OP PRN (16:00)
[2025-01-25] MEDS ORDERED: MAG/ALUM/SIMETH 30 ML UDCUP PO PRN (16:00)
[2025-01-25] MEDS ORDERED: BENZOCAINE/MENTH/CETYLPYRD CL 1 EACH LOZENGE MM PRN (16:00)
[2025-01-25] MEDS ORDERED: LACTULOSE 20 GM/30 ML UDCUP PO PRN (16:00)
[2025-01-25] MEDS ORDERED: LOPERAMIDE HCL 2 MG CAP PO PRN (16:00)
[2025-01-25 16:07] VITALS: O2SAT 98
--- NOTE | 2025-01-25 16:28 | NUR ---
DCP: HOME SW met with pt and his daughter Johnna Vasques, [phone], who lives with pt at his home. Pt reports that he remains able to bathe, dress and groom self. Daughter assists with home management, meal prep and transportation. Pt uses walker with seat, cane, no HH or HD services. PCP is [facility] and uses [facility] for rx needs. Pt denies need for SNF and will return home with daughter Addendum: 01/25/25 at 1636 by RAMIN ECHEVARRIA Amended: Links added.
--- NOTE | 2025-01-25 16:39 | NUR ---
PENDING IV SITE 20G AC & CONSENT FOR CTA EXAM
[2025-01-25] MEDS ORDERED: IOHEXOL 350 MG/ML 100ML INFUS..BTL IV ONE (17:15)
[2025-01-25] MEDS: FAMOTIDINE 20MG TAB PO SCH (20:09)
[2025-01-25] MEDS ORDERED: FAMOTIDINE 20MG VIAL IV SCH (21:00)
[2025-01-25 21:40] VITALS: BP 104/68; PULSE 79; RESP 18; TEMP 97.8
[2025-01-25 21:45] VITALS: O2SAT 95
--- NOTE | 2025-01-25 21:48 | NUR ---
PT DENIES THOUGHTS OF SELF HARM OR SUICIDAL IDEATION.
[2025-01-26] VITALS (9 sets, daily range): BP systolic 99–120; BP diastolic 60–76; PULSE 51–90; RESP 16–18; TEMP 97.5–98.3; O2SAT 96–98
[2025-01-26 05:35] LABS: NUCLEATED RED BLOOD CELLS 0.0 % (0.0-0.19); PLATELET COUNT (AUTO) 179.0 K/uL (130-400); RED BLOOD CELL COUNT(AUTO) 4.39 MIL/uL (4.50-6.20); RED CELL DISTRIBUTION WIDTH 14.6 % (11.0-15.5); WHITE BLOOD COUNT (AUTO) 6.8 K/uL (4.8-10.8)
[2025-01-26 05:49] LABS: CREATININE 1.0 mg/dL (0.5-1.3); GLOMERULAR FILTR. RATE CALC 72.0 mL/min (>90); GLUCOSE,RANDOM 91.0 mg/dL (70-105); SODIUM SERUM 140.0 mmol/L (136-145); UREA NITROGEN, BLOOD 17.0 mg/dL (7-18)
--- NOTE | 2025-01-26 09:22 | HMCIMG ---
CT ANGIO HEAD AND NECK REASON: presyncope TECHNIQUE: Images were obtained from thoracic inlet through the vertex of the skull before and after bolus IV infusion of 100 ml of Omnipaque. 2D and 3D multiplanar reconstruction images were obtained in the head and neck. FINDINGS: Pre contrast images show normal-appearing brain parenchyma. Ventricles and sulci appear normal. There is no evidence of intracranial hemorrhage. There is global atrophy with periventricular ischemic white matter changes. Post contrast images in the neck show normal-appearing common and internal carotid arteries. Bifurcations appear unremarkable. There is no evidence of atherosclerotic change or focal narrowing. Images in the brain demonstrate normal-appearing internal carotid arteries. Anterior, middle and posterior cerebral arteries appear normal. Posterior fossa vessels are unremarkable as well. There is no evidence of aneurysm or AVM. There is no evidence of focal vessel occlusion. IMPRESSION: Normal CT angiography of the head and neck Global atrophy with periventricular ischemic white matter changes.. CT was performed with one or more following dose reduction techniques: automated exposure control, adjustment of the mA and kv according to patient's size, or use of a iterative reconstruction technique.
[2025-01-26] MEDS: PoTASSium chl 10% ELIXIR 20MEQ 20 MEQ/15 ML UDCUP PO PRN (13:22)
--- NOTE | 2025-01-26 13:30 | NUR ---
NON ADMINISTRATION OF LASIX 1400 PATIENT BP SOFT AT 106/70 OF RIGHT NOW. HELD LASIX TO NOT LOWER BP LOWER. WILL CONTINUE TO MONITOR PATIENT CONDITION/ PLAN OF CARE.
--- NOTE | 2025-01-26 14:59 | PN ---
[facility] PROGRESS NOTE Date Patient Seen: Jan 26, 2025 Time of Visit: 14:58 Supervising Physician: Dr. Casillas Primary Care Physician: Dr. Sewell Outpatient Specialists: [ ] Inpatient Consults: [ ] PROBLEM LIST: Presyncope CHF exacerbation pending echocardiogram Pacemaker Hypertension Hypercholesteremia INTERVAL HISTORY: Patient was evaluated at bedside with daughter present. He is AAO x3, currently eating his lunch and tolerating his diet well. Patient's CTA of the head and neck was normal, negative for any acute findings. Patient's symptoms have resolved at this time. He is currently pending 2D echocardiogram as recommended by tele neurology. Patient's abdominal pain has subsided, and he continues working with physical therapy. We will continue with Lasix q.8 hours at this time. If echocardiogram is negative patient is a candidate for discharge tomorrow. Plan CTA of head and neck negative for acute findings Pending echocardiogram Continue with regular diet Follow morning labs Supplemental O2 if required REVIEW OF SYSTEMS: 12 point ROS reviewed with patient. Pertinent positives mentioned above. Othe rwise negative. PHYSICAL EXAM: GENERAL: alert, weak, awake oriented x 3 HEENT: EOMI, Sclera non icteric, moist mucosa NECK: Supple, no JVD, trachea midline LUNGS: Clear breath sounds bilaterally. No wheezes HEART: Regular rate and rhythm. Normal S1 and S2, without murmurs ABD: Abdomen soft, nontender. Bowel sounds present EXT: No clubbing cyanosis or edema NEURO: Alert and oriented to person, follows commands Vital Signs (last 8hr) Date Time Temp Pulse Resp B/P (MAP) Pulse Ox O2 Delivery O2 Flow Rate FiO2 01/26/25 08:00 97.9 76 16 109/62 96 Room Air 21 01/26/25 07:40 96 Room Air* 0 21 LABS: Hematology Labs: Test 01/26/25 05:15 01/25/25 11:27 Range/Units White Blood Count 6.8 4.8-10.8 K/uL Red Blood Count 4.39 L 4.50-6.20 MIL/uL Hemoglobin 12.2 L 14.0-18.0 g/dL Hematocrit 37.5 L 42-54 % Mean Corpuscular Volume 85.4 79-99 fL Mean Corpuscular Hemoglobin 27.8 27.0-33.0 pg Mean Corpuscular Hemoglobin Concent 32.5 32.0-36.0 g/dL Red Cell Distribution Width 14.6 11.0-15.5 % Platelet Count 179 130-400 K/uL Mean Platelet Volume 9.3 7.5-10.5 fL Nucleated Red Blood Cells 0.0 0.0-0.19 % Immature Granulocyte % (Auto) 0.3 0-1 % Neutrophils (%) (Auto) 79.6 H 40.0-77.0 % Lymphocytes (%) (Auto) 13.0 L 21.0-51.0 % Monocytes (%) (Auto) 4.1 3.0-13.0 % Eosinophils (%) (Auto) 2.4 0.0-8.0 % Basophils (%) (Auto) 0.6 0.0-5.0 % Neutrophils # (Auto) 5.7 1.8-7.7 K/uL Lymphocytes # (Auto) 0.9 L 1.0-4.8 K/uL Monocytes # (Auto) 0.3 0.1-1.0 K/uL Eosinophils # (Auto) 0.17 0.00-0.70 K/uL Basophils # (Auto) 0.04 0.00-0.20 K/uL Absolute Immature Granulocyte (auto 0.02 0-1 K/uL Chemistry Labs: Test 01/26/25 05:15 01/25/25 11:27 Range/Units Sodium Level 140 136-145 mmol/L Potassium Level 3.8 3.5-5.1 mmol/L Chloride Level 102 101-111 mmol/L Carbon Dioxide Level 30 21-32 mmol/L Blood Urea Nitrogen 17 7-18 mg/dL Creatinine 1.0 0.5-1.3 mg/dL Glomerular Filtration Rate Calc 72 >90 mL/min Random Glucose 91 70-105 mg/dL Total Calcium 8.7 8.5-10.1 mg/dL B-Type Natriuretic Peptide 1650 H 0-100 pg/mL Magnesium Level 2.10 1.80-2.40 mg/dL Troponin I High Sensitivity 35 4-75 ng/L DIAGNOSTICS / RADIOLOGY RESULTS: [ ] PLAN NEURO: Minimize central acting medications as possible. Maintain fall precautions, adequate lighting during the day PULMONARY: Supplemental 02 as needed. Maintain aspiration precautions at all times CARDIOVASCULAR: Follow hemodynamics. Vital signs per facility protocol GI & NUTRITION: Continue with nutritional support. Continue stool softeners and laxatives as needed. KIDNEYS & ELECTROLYTES: Strict monitoring of intake, output and overall fluid balance. Avoid nephrotoxic medications to the extent possible. Medications to be dosed according to renal function. Monitor electrolytes and replace as needed ENDOCRINE: Maintain blood glucose between 100-180 at all times. Hypoglycemia protocol in place INFECTIOUS DISEASE: Trend temperature, WBC and procalcitonin level Follow cultures, deescalate antibiotics as soon as possible. Panculture if new onset fever ONCOLOGY/HEMATOLOGY/COAGULATION: Monitor for s/s of bleeding Monitor hemoglobin, coagulation studies as needed SKIN: Pressure ulcer prevention per facility protocol Specialty mattress ORTHO/REHAB: Continue PT/OT Prophylaxis: Continue GI and DVT prophylaxis Code Status: Full Resuscitation Disposition: TBD Other: Total patient care time exceeds 35 minutes excluding all procedures. MARILY APPLE Jan 26, 2025 14:59
[2025-01-27 04:00] VITALS: BP 100/59; PULSE 77; RESP 17; TEMP 98
[2025-01-27 05:38] LABS: NUCLEATED RED BLOOD CELLS 0.0 % (0.0-0.19); PLATELET COUNT (AUTO) 196.0 K/uL (130-400); RED BLOOD CELL COUNT(AUTO) 4.32 MIL/uL (4.50-6.20); RED CELL DISTRIBUTION WIDTH 14.7 % (11.0-15.5); WHITE BLOOD COUNT (AUTO) 8.8 K/uL (4.8-10.8)
[2025-01-27 05:51] LABS: CREATININE 1.0 mg/dL (0.5-1.3); GLOMERULAR FILTR. RATE CALC 72.0 mL/min (>90); GLUCOSE,RANDOM 95.0 mg/dL (70-105); SODIUM SERUM 141.0 mmol/L (136-145); UREA NITROGEN, BLOOD 19.0 mg/dL (7-18)
[2025-01-27 08:00] VITALS: BP 110/73; PULSE 106; RESP 20; TEMP 97.6; O2SAT 98
[2025-01-27] MEDS: PoTASSium chloRIDE 20MEQ ER 20 MEQ ERTAB PO PRN (08:54)
[2025-01-27 12:00] VITALS: BP 125/88; PULSE 89; RESP 20; TEMP 98.2
--- NOTE | 2025-01-27 13:05 | DS ---
[facility] DISCHARGE SUMMARY Date Patient Seen: Jan 27, 2025 Time of Visit: 13:04 Supervising Physician: [ ] Supervising Physician: Dr. Casillas Primary Care Physician: Dr. Sewell Outpatient Specialists: [ ] Inpatient Consults: [ ] HOSPITAL COURSE: HPI (per admitting provider) Patient is an 89-year-old male who was admitted for an episode of lightheadedness associated with facial pressure, patient denies any facial drooping, no slurred speech. There was no loss of vision. Patient denies mechanical fall. In the emergency room patient's lab work is unremarkable, CT head was negative for acute findings. Tele neuro was consulted in the emergency department and requested a CTA of the head and neck, echocardiogram. Patient has pending these studies at this time. Patient is currently being diuresed from Lasix 40 mg q.8 hours at this time, we will decrease this dose tomorrow and re-evaluate BNP. Patient advised with the current treatment plan, he remains on room air, expressed understanding, no further complaints at this time. The patient was treated for the following problems: Patient was evaluated for presyncope and suspected CHF exacerbation with a BNP of 1800 on admission. 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 It is likely the patient's presyncope was secondary to this diagnosis as well as heat exhaustion from being outside. Patient advised on staying hydrated and proper electrolyte balance. Echocardiogram on this admission shows stage III diastolic dysfunction with an LVEF of approximately 20%, patient advised to continue with his daily Lasix and has a scheduled appointment with his architectural designer for evaluation of possible change in dose. ACTIVE PROBLEM LIST FOR THE HOSPITALIZATION: Presyncope CHF Stage III Diastolic dysfunction LVEF 20% CHRONIC PROBLEMS: continue previous management per PCP unless otherwise indicated Pacemaker Hypertension Hypercholesteremia REDRAWER FINDINGS/RECOMMENDATIONS: [ ] PROCEDURES: as mentioned above DISCHARGE MEDICATIONS: Pt hemodynamically stable and afebrile at time of discharge. PCP notified of patients admission, hospital course and discharge. PHYSICAL EXAM: GENERAL: alert, weak, awake oriented x 3 HEENT: EOMI, Sclera non icteric, moist mucosa NECK: Supple, no JVD, trachea midline LUNGS: Clear breath sounds bilaterally. No wheezes HEART: Regular rate and rhythm. Normal S1 and S2, without murmurs ABD: Abdomen soft, nontender. Bowel sounds present EXT: No clubbing cyanosis or edema NEURO: Alert and oriented to person, follows commands FOLLOW-UP: Follow-up with PCP in 2-3 days Continue Lasix 40 mg daily Follow with cardiology as scheduled for evaluation of furosemide dosing RECOMMENDATIONS: See Discharge Instructions This case was seen and discussed with my supervising physician. More than 30 minutes spent on discharge process, including evaluation of the patient, discuss ion with nursing staff, medication reconciliation and follow-up appointments MARILY APPLE Jan 27, 2025 13:05
--- NOTE | 2025-01-27 14:29 | HMCSR ---
APPROVED REPORT EXAM: Two-dimensional and M-mode echocardiogram with Doppler and color Doppler. Study Details: CHF INDICATION ICD: presyncope 2D Dimensions IVSd0.8 (0.7-1.1cm)LVEF(%)31.8 (>50%) LVDd6.7 (3.8-5.6cm)FS(%)15 % PWd0.8 (0.7-1.1cm)LA (2D)5.2 (1.6-4.0cm) IVSs1.1 cmAo Root(2D)4.2 (2.0-3.7cm) LVDs5.7 (2.5-4.0cm)LVOT diam1.8 (1.8-2.4cm) PWs1.2 cm Deformation Strain Apical 4-3.9 % Apical 2-4.1 % Apical 3-2.6 % Global Strain3.5 % M-Mode Dimensions EPSS3.7 cm LA (MM)5.8 (1.6-4.0cm) Ao Root(MM)3.8 (2.0-3.7cm) Aortic Valve AoV Vmax1.0 m/Angela Peak GR4.2 mmHgLVOT Vmax0.7 m/s AoV VTI0.2 mAo Mean GR2.4 mmHgLVOT VTI0.11 m KAMAR (VMAX)1.79 cm2AVA (VTI) 1.6 cm2 Mitral Valve MV E Vmax91.4 cm/sDECEL Pwva929 ms MV A Vmax20.8 cm/sP 1/2 T53 ms E/A ratio4.4MVA (PHT)4.1 cm2 TDI E/E' Aqljll58.3E/E' Hvqwgoo32.9 Medial E' Peak V0.92 cm/sLateral E' Peak V1.83 cm/s Pulmonary Valve PV Vmax0.8 m/sPV VTI0.13 mPV Mean GR1.4 mmHg PV Peak GR2.4 mmHg Tricuspid Valve TR Vmax2.8 m/sRVSP31.8 mmHg TR Peak GR31.8 mmHg Left Ventricle The left ventricle is severely dilated. Anterior, anteroseptal, anterolateral wall is akinetic. The b nelson to mid inferoseptal, inferior, and inferolateral wall is hypokinetic.At the apex, the inferolate ral wall is hypokinetic, and other de la cruz akinetic. Severe concentric left ventricular hypertrophy. LV EF is <20%. The left ventricular diastolic function is abnormal. Stage III diastolic dysfunction. Right Ventricle The right ventricle is mildly dilated. Right ventricular systolic function is mildly reduced. Device lead is present in the right ventricle. Atria The left atrium is moderately to severely dilated. The right atrium size is normal. Aortic Valve Aortic valve is trileaflet. Aortic valve sclerosis without stenosis. Mild aortic regurgitation. There is mild valvular aortic stenosis. Mitral Valve The mitral valve is mildly thickened. Mitral regurgitation is moderate. There is no mitral valve narayan nosis. Tricuspid Valve The tricuspid valve leaflets appear normal. Trace tricuspid regurgitation. Pulmonic Valve The pulmonic valve leaflets are thin and pliable; valve motion is normal. There is mild valvular regu rgitation. Great Vessels The aortic root is normal in size. The ascending aorta is normal in size. Pericardium No pericardial effusion. Other Information Quality : GoodRhythm : NSR Conclusion No significant change as compared to echocardiogram from October 2024.
--- NOTE | 2025-01-27 14:48 | NUR ---
DISCHARGE PATIENT CLEARED FOR DC BY MARILY FORD. GAVE DISCHARGE EDUCATION ON DIAGNOSIS AND FOLLOW UP APPOINTMENTS. PATIENT IV REMOVED AND INTACT. PATIENT WHEELED DOWN STAIRS BY WHEEL CHAIR BY DEANDRE BASS.
== END 2025-01-27 14:45 | disposition home or self-care (01) ==
LOC: EDH 11:05 → EDHIP 13:52 → 4BH 21:23
PROVIDERS: ADMIT Internal Medicine; ATTEND Internal Medicine
DX: R55 Syncope and collapse (principal); I11.0 Hypertensive heart disease with heart failure; I50.30 Unspecified diastolic (congestive) heart failure; E78.00 Pure hypercholesterolemia, unspecified; R53.1 Weakness; Z79.899 Other long term (current) drug therapy; Z98.890 Other specified postprocedural states
CPT/HCPCS: 96374; 99285; 83735; 84484; 80048 ×3; 83880 ×3; 85025; 81003; 36415 ×3; 71045; 70450; 70496; 70498; 93005; 85027 ×2; 93306; 93356; G0378 ×49; J1938 ×5; Q9967

== ENCOUNTER 2025-03-04 08:20 | Emergency (ER) | payer OTHER ==
[~2025-03-04] VITALS: Ht 177.8 cm; Wt 62.6 kg
[~2025-03-04 08:20] MED LIST changes: -CARV25TA PO; +CARV6.25 PO; +FE F1CAP8 PO; -FURO20TA4 PO; +FURO40TA5 PO
[2025-03-04 08:47] LABS: IMMATURE GRANULOCYTE ABSOLUTE 0.02 K/uL (0-1); NUCLEATED RED BLOOD CELLS 0.0 % (0.0-0.19); PLATELET COUNT (AUTO) 169 K/uL (130-400); RED BLOOD CELL COUNT(AUTO) 4.42 MIL/uL (4.50-6.20); RED CELL DISTRIBUTION WIDTH 15.5 % (11.0-15.5); WHITE BLOOD COUNT (AUTO) 5.1 K/uL (4.8-10.8)
[2025-03-04 08:57] LABS: CREATININE 0.9 mg/dL (0.5-1.3); GLOMERULAR FILTR. RATE CALC 82.0 mL/min (>90); GLUCOSE,RANDOM 134.0 mg/dL (70-105); SODIUM SERUM 135.0 mmol/L (136-145); UREA NITROGEN, BLOOD 15.0 mg/dL (7-18)
[2025-03-04 09:05] LABS: CREATINE KINASE, TOTAL 44.0 U/L (21-232)
--- NOTE | 2025-03-04 09:42 | HMCIMG ---
EXAM: CT Head Without IV contrast. CLINICAL HISTORY: Dizziness TECHNIQUE: Axial computed tomography images of the head/brain without intravenous contrast. COMPARISON: CT brain dated 01/25/2025. FINDINGS: BRAIN: Redemonstrated, stable prominent subarachnoid space (measuring 10 mm in thickness) along the left frontal lobe. Mild to moderate bilateral cerebral and cerebellar neuroparenchymal atrophy. Mild chronic small vessel ischemic changes involving bilateral periventricular white matter. No evidence of acute hemorrhage. No mass lesion. No CT evidence for acute territorial infarct. No midline shift or extra-axial collections. VENTRICLES: No hydrocephalus. ORBITS: The orbits are unremarkable. SINUSES AND MASTOIDS: The paranasal sinuses and mastoid air cells are clear. BONES: No fracture. SOFT TISSUES: Unremarkable. IMPRESSION: No evidence of acute hemorrhage.No CT evidence for acute territorial infarct. Suggested MRI brain, for further evaluation. Redemonstrated, stable prominent subarachnoid space along the left frontal lobe. Mild to moderate bilateral cerebral and cerebellar neuroparenchymal atrophy. Mild chronic small vessel ischemic changes involving bilateral periventricular white matter. /[place]
--- NOTE | 2025-03-04 10:19 | EKG ---
[facility] Test Date: 2025-03-04 Test Time: 09:13:02 Pat Name: ADENIKE MURPHY Department: [facility] Room: Gender: Lead Case Manager: [facility] : 1935 Requested By: CLAUDIA CHEW Order Number: [id number] Reading MD: Verito Rodriguez Measurements Intervals [place] Rate: 73 P: 50 SD: 159 QRS: 189 QRSD: 175 T: -12 QT: 452 QTc: 500 Interpretive Statements Atrial-sensed ventricular-paced rhythm Compared to ECG 01/25/2025 11:10:03 No significant changes Electronically Signed On 03-04-2025 12:29:58 CDT by Verito Rodriguez Please click the below link to view image of tracing.
--- NOTE | 2025-03-04 10:24 | ERN ---
ED Note History of Present Illness Stated Complaint: DIZZY, HEAD PRESSURE Chief Complaint: Dizzy/Light Headed Time Seen by MD: 10:09 Dictation: PATIENT IS AN 89-YEAR-OLD MALE HERE WITH HIS DAUGHTER WITH SEVERAL COMPLAINTS 1ST COMPLAINT IS STATES HE HAS STRONG LIGHTHEADEDNESS HE HAS HAD FOR SEVERAL YEARS. HE ALSO FEELS NUMBNESS AND TINGLING TO HIS FACE IN HIS SINUSES MAXILLARY AND FRONTAL. HE DENIES ANY FEVER CHILLS NAUSEA VOMITING. NIH IS 0. HE HAS ALREADY BEEN SEEN AND ADMITTED TO THE HOSPITAL IN THE PAST FOR COMPLAINTS OF CHF OVERLOAD HOWEVER TODAY HE IS MORE CONCERNED WITH THE NUMBNESS AND TINGLING TO HIS FACE AND THE PRESSURE IN HIS FACE. Allergies: Coded Allergies: No Known Drug Allergies (Unverified Allergy, Unknown, 01/17/15) Home Meds Active Scripts Meclizine HCl (Meclizine HCl) 25 Mg Tablet, 25 MG PO TID for vertigo, #30 TAB 0 Refills Prov:BRUNO CLEMENTS PROPERTY MAN 03/04/25 Methylprednisolone (Medrol) 4 Mg Tab.ds.pk, 1 TAB PO AD for 6 Days, #21 TAB 0 Refills 6 on day 1 then reduce by one tablet daily until gone Prov:BRUNO CLEMENTS NP 03/04/25 Reported Medications Fe Fumarate/FA/Mv, Min Comb#15 (Hemocyte Plus Capsule) 106 Mg Iron-1 Mg Capsule, 1 CAP PO DAILY for 30 Days, #30 CAP 0 Refills 01/25/25 Carvedilol (Carvedilol) 6.25 Mg Tablet, 1 TAB PO BID for 30 Days, #60 TAB 0 Refills 01/25/25 Furosemide (Furosemide) 40 Mg Tablet, 1 TAB PO DAILY for 30 Days, #30 TAB 0 Refills 01/25/25 Enalapril Maleate (Enalapril Maleate) 2.5 Mg Tablet, 1 TAB PO BID for 30 Days, #30 TAB 0 Refills 01/25/25 Propylene Glycol (Systane Balance) 0.6 % Drops, 1 DROP OP QID, #10 ML 0 Refills 11/07/24 Carboxymethylcell/Glycerin/Pf (Refresh Relieva Pf 0.5-1% Drop) 0.5 %-1 % Droperette, 1 EACH OP TID, DROP 11/07/24 Ketorolac Tromethamine (Ketorolac Tromethamine) 0.5 % Drops, 1 DROP OP QID for itching, #5 ML 0 Refills 11/07/24 Cyclobenzaprine HCl (Cyclobenzaprine HCl) 5 Mg Tablet, 1 TAB PO TIDP PRN for muscle spasms for 10 Days, #30 TAB 0 Refills 11/07/24 Simvastatin (Simvastatin) 10 Mg Tablet, 1 TAB PO DAILY 11/07/24 Doxazosin Mesylate (Doxazosin Mesylate) 8 Mg Tablet, 1 TAB PO DAILY for 30 Days, #30 TAB 0 Refills 11/07/24 Aspirin (ASPIRIN 81 MG ECTAB) 81 Mg Ectab, 81 MG PO DAILY, TAB.EC 01/17/15 Spironolactone (Spironolactone) 25 Mg Tablet, 25 MG PO MON,WED,TUE, TAB 01/17/15 Past Medical History Past Medical History: CHF, High Cholesterol, Heart Disease, Hypertension Additional Past Medical Hx: CHRONIC DIZZINESS Surgical History: Cholecystectomy, Pacer/AICD RN Note Reviewed/Agreed w/PFSH: Yes Review of System Dictation CONSTITUTIONAL: NEGATIVE EXCEPT FOR HPI HEAD/FACE: NEGATIVE EXCEPT FOR HPI FRONTAL AND ETHMOIDAL TIGHTNESS TENDERNESS EENT: NEGATIVE EXCEPT FOR HPI RESPIRATORY: NEGATIVE EXCEPT FOR HPI GASTROINTESTINAL/ABDOMINAL: NEGATIVE EXCEPT FOR HPI GENITOURINARY: NEGATIVE EXCEPT FOR HPI MUSCULOSKELETAL: NEGATIVE EXCEPT FOR HPI INTEGUMENTARY: NEGATIVE EXCEPT FOR HPI NEUROLOGICAL/PSYCH: NEGATIVE EXCEPT FOR HPI NUM NUMBNESS AND TINGLING TO FACE NEAR SYNCOPAL HEMATOLOGIC/LYMPHATIC: NEGATIVE EXCEPT FOR HPI ALL SYSTEMS NEGATIVE, EXCEPT NOTED ABOVE. 13 POINT REVIEW OF SYSTEMS ASSESSED AND ALL NEGATIVE EXCEPT FOR ABOVE. Initial Vital Sign VS Vital Signs Date Time Temp Pulse Resp B/P (MAP) Pulse Ox O2 Delivery O2 Flow Rate FiO2 03/04/25 08:22 97.9 85 16 109/61 96 Room Air 0 03/04/25 11:33 21 Physical Exam Dictation VITAL SIGNS REVIEWED GENERAL APPEARANCE: ALERT, ORIENTED X 3, NO ACUTE DISTRESS, WELL DEVELOPED, NOURISHED. HEAD AND FACE: NON-TRAUMATIC. NO SINUS TENDERNESS. EYES: PERRL, PINK CONJUNCTIVAS, EYELID NO TRAUMA, ANTERIOR CHAMBER WITH ARCUS SENILIS. EARS: PINNAS INTACT AND NO SIGNS OF TRAUMA OR ERYTHEMA EAR CANALS CLEAR AND NO DISCHARGE TM NO ERYTHEMA NOSE: NO DISCHARGE, NO BLEEDING. OROPHARYNX: MOUTH NORMAL, TONGUE PINK, PHARYNX CLEAR,NO ERYTHEMA, TONSILS NO EXUDATES, NO ABSCESSES NOTED, MUCOUS MEMBRANE MOIST NECK: SUPPLE, NON-TENDER, NO THYROMEGALY, NO MASSES, NO JVD, NO BRUITS BREAST:DEFERRED CHEST:NO TENDERNESS, NO CREPITUS, NO PARADOXICAL MOVEMENT, NO RETRACTIONS LUNGS:CLEAR, WELL-VENTILATED, SYMMETRIC, NO RALES, NO WHEEZING, NO RHONCHI, NO STRIDOR, GOOD BREATH SOUNDS BILATERALLY HEART: REGULAR RATE, REGULAR RHYTHM, NO MURMUR, NO GALLOPS VASCULAR: NO PERIPHERAL EDEMA, ABDOMEN: SOFT, POSITIVE BOWEL SOUNDS, NONDISTENDED, NO GUARDING, NONTENDER, NO REBOUND, NO MASSES NO HEPATOMEGALY, NO SPLENOMEGALY, NO WAGNER'S SIGN, NO HERNIAS. RECTAL: DEFERRED GENITAL: DEFERRED NEUROLOGICAL: NORMAL SPEECH, MOTOR FUNCTION INTACT, SENSORY FUNCTION INTACT NIH IS FULL MUSCULOSKELETAL: NECK NONTENDER, FULL RANGE OF MOTION, BACK NONTENDER, FULL RANGE OF MOTION, EXTREMITIES: NONTENDER, FULL RANGE OF MOTION SKIN: COLOR PINK, DRY, NO TURGOR, NO RASH, NO LACERATIONS, NO ABRASIONS, NO CONTUSIONS. LYMPHATIC: DEFERRED Results (Laboratory/Radiology) Laboratory/Radiology Laboratory Tests Test 03/04/25 08:35 03/04/25 11:20 White Blood Count 5.1 K/uL (4.8-10.8) Red Blood Count 4.42 MIL/uL (4.50-6.20) L Hemoglobin 12.6 g/dL (14.0-18.0) L Hematocrit 38.0 % (42-54) L Mean Corpuscular Volume 86.0 fL (79-99) Mean Corpuscular Hemoglobin 28.5 pg (27.0-33.0) Mean Corpuscular Hemoglobin Concent 33.2 g/dL (32.0-36.0) Red Cell Distribution Width 15.5 % (11.0-15.5) Platelet Count 169 K/uL (130-400) Mean Platelet Volume 9.1 fL (7.5-10.5) Immature Granulocyte % (Auto) 0.4 % (0-1) Neutrophils (%) (Auto) 79.5 % (40.0-77.0) H Lymphocytes (%) (Auto) 15.0 % (21.0-51.0) L Monocytes (%) (Auto) 2.7 % (3.0-13.0) L Eosinophils (%) (Auto) 1.8 % (0.0-8.0) Basophils (%) (Auto) 0.6 % (0.0-5.0) Neutrophils # (Auto) 4.1 K/uL (1.8-7.7) Lymphocytes # (Auto) 0.8 K/uL (1.0-4.8) L Monocytes # (Auto) 0.1 K/uL (0.1-1.0) Eosinophils # (Auto) 0.09 K/uL (0.00-0.70) Basophils # (Auto) 0.03 K/uL (0.00-0.20) Absolute Immature Granulocyte (auto 0.02 K/uL (0-1) Nucleated Red Blood Cells 0.0 % (0.0-0.19) Sodium Level 135 mmol/L (136-145) L Potassium Level 3.7 mmol/L (3.5-5.1) Chloride Level 98 mmol/L (101-111) L Carbon Dioxide Level 32 mmol/L (21-32) Blood Urea Nitrogen 15 mg/dL (7-18) Creatinine 0.9 mg/dL (0.5-1.3) Glomerular Filtration Rate Calc 82 mL/min (>90) Random Glucose 134 mg/dL (70-105) H Total Calcium 8.2 mg/dL (8.5-10.1) L Total Creatine Kinase 44 U/L (21-232) # Troponin I High Sensitivity 39.2 ng/L (4-75) B-Type Natriuretic Peptide 1940 pg/mL (0-100) H Urine Color YELLOW (YELLOW) Urine Appearance CLEAR (CLEAR) Urine pH 5.5 (5.0-8.0) Urine Specific Leupp 1.010 (1.001-1.031) Urine Protein NEGATIVE mg/dL (NEGATIVE) Urine Glucose (UA) NEGATIVE mg/dL (NEGATIVE) Urine Ketones NEGATIVE mg/dL (NEGATIVE) Urine Occult Blood NEGATIVE (NEGATIVE) Urine Nitrate NEGATIVE (NEGATIVE) Urine Bilirubin NEGATIVE mg/dL (NEGATIVE) Urine Urobilinogen 0.2 mg/dL (0.2-1.0) Urine Leukocyte Esterase NEGATIVE Jose Armando/uL EXAM: CT Head Without IV contrast. CLINICAL HISTORY: Dizziness TECHNIQUE: Axial computed tomography images of the head/brain without intravenous contrast. COMPARISON: CT brain dated 01/25/2025. FINDINGS: BRAIN: Redemonstrated, stable prominent subarachnoid space (measuring 10 mm in thickness) along the left frontal lobe. Mild to moderate bilateral cerebral and cerebellar neuroparenchymal atrophy. Mild chronic small vessel ischemic changes involving bilateral periventricular white matter. No evidence of acute hemorrhage. No mass lesion. No CT evidence for acute territorial infarct. No midline shift or extra-axial collections. VENTRICLES: No hydrocephalus. ORBITS: The orbits are unremarkable. SINUSES AND MASTOIDS: The paranasal sinuses and mastoid air cells are clear. BONES: No fracture. SOFT TISSUES: Unremarkable. IMPRESSION: No evidence of acute hemorrhage.No CT evidence for acute territorial infarct. Suggested MRI brain, for further evaluation. Redemonstrated, stable prominent subarachnoid space along the left frontal lobe. Mild to moderate bilateral cerebral and cerebellar neuroparenchymal atrophy. Mild chronic small vessel ischemic changes involving bilateral periventricular white matter. /[place] CHEST X-RAY DEMONSTRATES PACEMAKER ONLY NO PULMONARY DISEASE Labs Reviewed?: Yes EKG Comment: EKG IS AV PACED RHYTHM/VENTRICULAR RATE 7 ED Course ED Course Orders Procedure Category Date Status Time Cardiac Panel LAB 03/04/25 Complete 08:27 Cbc With Differential LAB 03/04/25 Complete 08:27 Basic Metabolic Panel LAB 03/04/25 Complete 08:27 Urinalysis Profile LAB 03/04/25 Complete 08:27 12 Lead Ekg Tracing- EKG 03/04/25 Resulted Technical 08:27 Ct Head/Brain W/O CT 03/04/25 Resulted Contrast 08:27 Lactated Ringers PHA 03/04/25 Complete 1000ml (Lactated 08:30 Meclizine Hcl 25 Mg PHA 03/04/25 Complete (Antivert 25 Mg) 08:30 Pseudoephedrine Hcl PHA 03/04/25 Complete (Sudafed) 09:00 B-Type Natriuretic LAB 03/04/25 Complete Peptide 10:22 Compound Po Narcotic PHA 03/04/25 Complete (Compound Po Narcot 11:30 Chest 1vw RAD 03/04/25 Resulted 11:25 Methylprednisolone PHA 03/04/25 Complete Succ 125mg (Solu-Medr 13:00 Current Medications Medications (Trade) Dose Ordered Sig/Elli Route PRN Reason Start Time Stop Time Status Last Admin Dose Admin Home Med (Compound Po Narcotic) ONCE ONCE PO 03/04/25 11:30 03/04/25 11:31 DC Lactated Ringer's 500 ml @ 0 mls/hr ONCE ONCE IV 03/04/25 08:30 03/04/25 08:31 DC 03/04/25 11:05 Meclizine HCl (ANTIvert 25 mg) 25 mg ONCE ONCE PO 03/04/25 08:30 03/04/25 08:31 DC 03/04/25 11:05 Methylprednisolone Sodium Succinate (Solu-medROL 125MG) 125 mg ONCE ONCE IVP 03/04/25 13:00 03/04/25 13:01 DC 03/04/25 12:51 Pseudoephedrine HCl (SudaFED) 30 mg ONCE ONCE PO 03/04/25 09:00 03/04/25 09:01 DC 03/04/25 11:34 Vital Signs Date Time Temp Pulse Resp B/P (MAP) Pulse Ox O2 Delivery O2 Flow Rate FiO2 03/04/25 12:56 98.2 80 18 128/76 99 Room Air* 0 21 03/04/25 11:33 98.4 71 18 110/70 99 Room Air* 0 21 03/04/25 08:22 97.9 85 16 109/61 96 Room Air 0 1240/PATIENT FEELS MARKEDLY IMPROVED AFTER MECLIZINE. HE WISHES TO BE DISCHA RGED HOME NO NYSTAGMUS AND STATES HE FEELS LESS DIZZY NOW AFTER THE MECLIZINE. HE WILL BE GIVEN SOLU-MEDROL AND TREATED FOR POSITIONAL VERTIGO AND LABYRINTHITIS TOLD FOLLOW UP WITH HER PRIMARY CARE DOCTOR [facility] IS Medical Decision Making MDM MDM: DIFFERENTIAL DIAGNOSIS: ACS/AMI/CVA/ELECTROLYTE IMBALANCE/DEHYDRATION/PNEUMONIA/BRONCHITIS/FLUID OVERLOA D/CHF/SINUSITIS/ANXIETY/VERTIGO IS LAST LABYRINTHITIS RATIONALE: TESTS CONSIDERED AND ORDERED SECONDARY TO SHARED DECISION MAKING INCLUDE: EKG/LABS/RADIOLOGY PREVIOUS OUTSIDE RECORDS REVIEWED: OLD ER VISITS. RISK OF COMPLICATION AND/OR MORBIDITY OR MORTALITY OF PATIENT MANAGEMENT: NONE MEDICATIONS-PER MEDICATION RECONCILIATION NEED FOR HOSPITALIZATION: PATIENT DOES NOT MEET CRITERIA FOR HOSPITALIZATION. DOES NOT WISH TO BE ADMITTED AT THIS TIME. NEED FOR EMERGENCY MAJOR/MINOR SURGERY: NO THERE ARE NO SOCIAL CONCERNS WITH THIS PATIENT. PRESCRIPTION DRUG MANAGEMENT MEDROL DOSEPAK/MECLIZINE PRESCRIPTIONS WILL INCLUDE SYMPTOMATIC CARE PATIENT'S PRIOR EXTERNAL MEDICAL RECORDS FROM OTHER ER VISITS WERE REVIEWED BY ME INDICATED. PRIOR TESTING AND RESULTS FROM PREVIOUS VISITS WERE REVIEWED. PRIOR TESTS WERE TAKEN INTO ACCOUNT WITH MEDICAL DECISION MAKING AND RESOURCE UTILIZATION, INDEPENDENT HISTORIAN/HISTORIANS WERE USED TO OBTAIN COMPLETE MEDICAL HISTORY. I INDEPENDENTLY INTERPRETED THE TEST THAT WERE PERFORMED, RESULTS WERE REVIEWED BY ME AND CONSIDERED FINDINGS ON RADIOLOGY IF ORDERED. MEDICAL MANAGEMENT AND EXAMINATION INTERPRETATION DISCUSSIONS WERE HAD BY ME WITH OTHER QUALIFIED HEALTHCARE PROFESSIONALS INDICATED FOR THE PATIENT'S CARE. DX & DISP Disposition: Discharge Departure Impression: Primary Impression: Elevated brain natriuretic peptide (BNP) level Additional Impressions: Hyperglycemia, Benign positional vertigo, Acute labyrinthitis, Mild dehydration, Pacemaker Condition: Stable Scripts Meclizine HCl (Meclizine HCl) 25 Mg Tablet 25 MG PO TID for vertigo, #30 TAB 0 Refills Prov: BRUNO CLEMENTS NP 03/04/25 Methylprednisolone (Medrol) 4 Mg Tab.ds.pk 1 TAB PO AD for 6 Days, #21 TAB 0 Refills 6 on day 1 then reduce by one tablet daily until gone Prov: BRUNO CLEMENTS NP 03/04/25 Additional Instructions: FOLLOW-UP WITH PRIMARY CARE PROVIDER IN 1 TO 2 DAYS. TAKE MEDICATIONS DIRECTED HERE IN THE EMERGENCY ROOM. OKAY TO CONTINUE HOME MEDICATIONS UNLESS OTHERWISE DISCUSSED DURING YOUR VISIT IN THE EMERGENCY ROOM TODAY. RETURN TO YOUR NEAREST EMERGENCY ROOM IF SYMPTOMS WORSEN OR IF THERE IS NO IMPROVEMENT. CALL 911 IF YOU NEED IMMEDIATE ASSISTANCE. TAKE TYLENOL OR MOTRIN [id number] NEEDED AND IF NO CONTRAINDICATIONS ARE PRESENT. INCREASE ORAL HYDRATION. A WOUND CULTURE OR URINE CULTURE WAS ORDERED HERE IN THE EMERGENCY ROOM DEPARTMENT PLEASE FOLLOW-UP WITH PRIMARY CARE PROVIDER AND ADVISE THEM TO GET REPEAT PORTS FROM OUR FACILITY. IF YOU HAD ANY CURTIS WRAP/SPLINTS THAT WERE APPLIED HERE, PLEASE DO NOT REMOVE THEM UNTIL YOU SEE YOUR PRIMARY CARE OR SPECIALTY. TAKE MEDROL DOSEPAK DIRECTED UNTIL GONE STARTING TOMORROW. TAKE MECLIZINE EVERY8 HOURS FOR THE NEXT TWO DAYS. INCREASE YOUR WATER INTAKE. SEE YOUR PRIMARY CARE DOCTOR FOR FOLLOW UP Referrals: BLAS RUTHERFORD MD (PCP) Time of Disposition: 12:44 I have reviewed the case, Diagnosis and Plan BRUNO CLEMENTS NP Mar 04, 2025 10:24 CLAUDIA CHEW DO Mar 04, 2025 14:55
[2025-03-04] MEDS: LACTATED RINGERS 1000ML 500 ML IV ONE (11:05)
[2025-03-04] MEDS: COMPOUND PO NARCOTIC 1 EACH PO ONE (11:34)
[2025-03-04 11:48] LABS: APPEARANCE,URINE CLEAR (CLEAR); GLUCOSE, URINE (UA) NEGATIVE (NEGATIVE); LEUKOCYTE ESTERASE ,URINE NEGATIVE Leu/uL (NEGATIVE); NITRATE,URINE NEGATIVE (NEGATIVE); OCCULT BLOOD,URINE NEGATIVE (NEGATIVE)
[2025-03-04 12:02] LABS: ADD UA MICROSCOPIC NO
[2025-03-04] MEDS ORDERED: METH4TAB3 PO (12:45)
[2025-03-04] MEDS ORDERED: MECL-302 PO (12:45)
[2025-03-04 12:56] VITALS: BP 128/76; PULSE 80; RESP 18; TEMP 98.3; O2SAT 99
--- NOTE | 2025-03-04 12:57 | HMCIMG ---
EXAM: CR Chest, 1 View. CLINICAL HISTORY: SHORTNESS A BREATH/PACEMAKER COMPARISON: Radiograph dated January 25, 2025 FINDINGS: LUNGS: There is no mass, infiltrate, or acute pulmonary abnormality. PLEURAL SPACES: No pleural effusion or pneumothorax. MEDIASTINUM: AICD leads overlie the right atrium and both ventricles. Heart size is stable. Pulmonary vessels are within normal limits. BONES: No acute osseous abnormality. IMPRESSION: 1. No acute cardiopulmonary findings. /[place]
== END 2025-03-04 13:01 | disposition home or self-care (01) ==
LOC: EDH 08:20
DX: R79.89 Other specified abnormal findings of blood chemistry (principal); E78.00 Pure hypercholesterolemia, unspecified; E86.0 Dehydration; H81.10 Benign paroxysmal vertigo, unspecified ear; I11.0 Hypertensive heart disease with heart failure; I50.9 Heart failure, unspecified; Z79.82 Long term (current) use of aspirin; Z79.899 Other long term (current) drug therapy; Z90.49 Acquired absence of other specified parts of digestive tract; Z95.810 Presence of automatic (implantable) cardiac defibrillator
CPT/HCPCS: 99285; 96374; 70450; 71045; 96361; 82550; 84484; 80048; 83880; 85025; 81003; 36415; 93005; J2919; J7120